=== PATIENT | female | born 1995 | race Hispanic/Latino ===

== ENCOUNTER 2017-11-09 18:06 | Emergency (ER) | payer OTHER ==
[~2017-11-09] VITALS: Ht 160 cm; Wt 63.5 kg
[2017-11-09 18:35] LABS: ABSOLUTE BASOPHIL COUNT 0 /CUMM (0.0-0.2); ABSOLUTE EOSINOPHIL COUNT 0.1 /CUMM (0.0-0.7); ABSOLUTE GRANULOCYTE CT 3.6 /CUMM (1.4-6.5); ABSOLUTE LYMPH COUNT 1.6 /CUMM (1.2-3.4); ABSOLUTE MONOCYTE COUNT 0.3 /CUMM (0.10-0.60); BASOPHIL % 0.3 % (0.0-2.0); EOSINOPHIL % 1.3 % (0-5); GRANULOCYTE % 64.2 % (42.2-75.2); HEMATOCRIT 40.9 % (37-47); MEAN CORPUSCULAR HGB 30.4 PG (27.0-31.0); MEAN CORPUSCULAR HGB CONC 33.1 G/DL (33.0-37.0); MEAN CORPUSCULAR VOLUME 91.8 FL (81.0-99.0); MEAN PLATELET VOLUME 8.8 FL (7.4-10.4); PLATELET COUNT 226 /CUMM (130-400); RBC DISTRIBUTION WIDTH 13.2 % (11.5-14.5); RED BLOOD CELL CT 4.45 /CUMM (4.20-5.40); WHITE BLOOD CELL COUNT 5.7 /CUMM (4.8-10.8)
--- NOTE | 2017-11-09 18:51 | ED PSYCHIATRIC COMPLAINT ---
History of Present Illness General Chief Complaint: Psychiatric Related Complaint Stated Complaint: BIBA FOR PSYCH EVAL ON POLICE PAPERED, +SI Source: patient Exam Limitations: no limitations Allergies Coded Allergies: No Known Allergies (11/09/17) Reconcile Medications Hydroxyzine Hydrochloride (Atarax) 25 MG TAB 1 TAB PO Q6P PRN ANXIETY Triage Note: PT BIBA FROM HOME ON A PEER. PER PAPERWORK, PD FOUND "TEXT MESSAGES TO BOYFRIEND 'WILL SLIT WRISTS'". PT ARRIVES TEARFUL. PA AT BEDSIDE. PT BEING CHANGED INTO BLUE SCRUBS, SECURITY CALLED FOR WANDING. VALUABLES SECURED. Triage Nurses Notes Reviewed? yes Onset: Abrupt Duration: unknown duration Timing: recent history Severity: moderate, severe : No Patient currently breastfeeds: No HPI: 22-year-old female comes into the emergency room for further evaluation of suicidal comments and cutting to her right wrist. Patient was in an argument with her boyfriend. She reported that she was going to cut herself. He called the mother. She has some superficial cuts to her right wrist. Police were called. Patient was put on a PEER. She was admitted when she was 15 for something similar. She was diagnosed with anxiety and depression. She currently takes no medication. She denies any drug use or alcohol use. She reports that she was not serious and does not have any intention of hurting herself. (Roberto Soto) Vital Signs & Intake/Output Vital Signs & Intake/Output Vital Signs Date Time Temp Pulse Resp B/P B/P Pulse O2 O2 Flow FiO2 Mean Ox Delivery Rate 11/10 0932 98.2 68 16 113/50 100 Room Air 11/10 0621 98.0 70 17 118/68 100 Room Air 11/09 2137 98.7 73 18 132/79 100 11/09 1820 98.4 77 18 132/93 100 ED Intake and Output 11/10 0000 11/09 1200 Intake Total 0 Output Total Balance 0 Intake, Oral 0 Patient 140 lb Weight (Kevin FELIPE,Lloyd Myers) Past History Travel History Traveled to [place] past 21 day No Medical History Any Pertinent Medical History? see below for history Neurological: NONE EENT: NONE Cardiovascular: NONE Respiratory: NONE Gastrointestinal: NONE Hepatic: NONE Renal: NONE Musculoskeletal: NONE Psychiatric: SI SUICIDE ATTEMPT Endocrine: NONE Blood Disorders: NONE Cancer(s): NONE SCADA TECHNICIAN/Reproductive: NONE Surgical History Surgical History: non-contributory Psychosocial History What is your primary language Cameroonian Tobacco Use: Never used Family History Hx Contributory? No (Roberto Soto) Review of Systems Review of Systems Constitutional: Reports: no symptoms. EENTM: Reports: no symptoms. Respiratory: Reports: no symptoms. Cardiovascular: Reports: no symptoms. GI: Reports: no symptoms. Genitourinary: Reports: no symptoms. Musculoskeletal: Reports: no symptoms. Skin: Reports: see HPI. Neurological/Psychological: Reports: see HPI. Hematologic/Endocrine: Reports: no symptoms. Immunologic/Allergic: Reports: no symptoms. All Other Systems: Reviewed and Negative (Roberto Soto) Physical Exam Physical Exam General Appearance: well developed/nourished, mild distress, crying Head: atraumatic Eyes: Bilateral: normal appearance. Ears, Nose, Throat: normal ENT inspection, hearing grossly normal Neck: normal inspection Respiratory: no respiratory distress Extremities: normal range of motion Neurological/Psychiatric: awake Appearance/Memory/Insight: appropriate appearance Behavoir/Eye Contact/Speech: avoids eye contact Thoughts/Hallucinations: no apparent hallucination Skin: intact, normal color, warm/dry (Roberto Soto) SAD PERSONS SAD PERSONS Response Value Depression/Hopelessness? yes 2 Rational Thinking Loss? yes 2 Total 4 SAD PERSONS Done? yes (Kevin FELIPE,Lloyd Myers) Progress Differential Diagnosis: dementia, drug intoxication, drug overdose, drug withdrawal, borderline personality, depression, anxiety, Hand-Off Endorsed To: Kevin FELIPE,Lloyd Myers Endorsed Time: 2331 Pending: consult (crisis re-evaluation) (Roberto Soto) Plan of Care: Orders Procedure Date/time Status Regular Diet 11/10 B Active ED CRISIS PSYCH CONSULT 11/09 1826 Active Continuous Observation Monitor 11/09 180 Active URINE DRUGS OF ABUSE 11/09 180 Complete URINE 11/09 180 Complete ETHANOL 11/10 1807 Complete COMPREHENSIVE METABOLIC PANEL 11/10 1807 Complete CBC WITHOUT DIFFERENTIAL 11/10 1807 Complete Laboratory Tests 11/09/17 1937: Urine Opiates Screen < 100, Methadone Screen < 40, Barbiturate Screen < 60, Ur Phencyclidine Scrn < 6.00, Amphetamines Screen < 100, U Benzodiazepines Scrn < 85, Urine Cocaine Screen < 50, Urine Cannabis Screen 79.80 H, Urine Test NEGATIVE 11/09/17 1829: Anion Gap 11, Estimated GFR > 60, BUN/Creatinine Ratio 10.0, Glucose 86, Calcium 9.4, Total Bilirubin 0.2, AST 21, ALT 25, Alkaline Phosphatase 62, Total Protein 7.0, Albumin 4.4, Globulin 2.6, Albumin/Globulin Ratio 1.7, CBC w Diff NO MAN DIFF REQ, RBC 4.45, MCV 91.8, MCH 30.4, MCHC 33.1, RDW 13.2, MPV 8.8, Gran % 64.2, Lymphocytes % 28.6, Monocytes % 5.6, Eosinophils % 1.3, Basophils % 0.3, Absolute Granulocytes 3.6, Absolute Lymphocytes 1.6, Absolute Monocytes 0.3, Absolute Eosinophils 0.1, Absolute Basophils 0, Serum Alcohol 87.0 Hand-Off Endorsed To: Myke Matias MD Endorsed Time: 0700 Pending: consult (Kevin FELIPE,Lloyd Myers) Departure Departure Condition: Stable Referrals: Patient Has No Primary Care Dr (PCP/Family) Departure Forms: Customer Survey General Discharge Information (Roberto Soto) PA/[employer] ADMINISTRATOR Co-Sign Statement Statement: ED Attending supervision documentation- [] I saw and evaluated the patient. I have also reviewed all the pertinent lab results and diagnostic results. I agree with the findings and the plan of care as documented in the PA's/[employer] ADMINISTRATOR's documentation. [x] I have reviewed the ED Record and agree with the PA's/[employer] ADMINISTRATOR's documentation. [] Additions or exceptions (if any) to the PAs/[employer] ADMINISTRATOR's note and plan are summarized below: [] (Kevin FELIPE,Lloyd Myers) Departure Disposition: HOME OR SELF CARE Clinical Impression Primary Impression: Panic disorder Additional Instructions: FOLLOW UP WITH YOUR APPOINTMENT ON THE CALL 211 OR RETURN TO THE ER FOR ANY CONCERNS OF HARMING YOURSELF OR ANYONE ELSE OR FOR ANY CONCERNS Prescriptions: Current Visit Scripts Hydroxyzine Hydrochloride (Atarax) 1 TAB PO Q6P PRN ANXIETY #30 TAB (Myke Matias MD) Prescriptions: Current Visit Scripts Hydroxyzine Hydrochloride (Atarax) 1 TAB PO Q6P PRN ANXIETY #30 TAB (Myke Matias MD)
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
[2017-11-10 09:32] VITALS: BP 113/50
[2017-11-10] MEDS ORDERED: HYDROXYZINE HCL25 M2 PO (10:17)
== END 2017-11-10 10:40 ==
LOC: ERH 18:06
PROVIDERS: Physician Assistant Medical
DX: F41.0 Panic disorder [episodic paroxysmal anxiety] (principal)
CPT/HCPCS: 80307; 81025; G0463; G0480; J3101